=== PATIENT | male | born 1940 | race Caucasian/White ===

== ENCOUNTER → 2017-10-06 | Outpatient (CLI) | payer MEDICARE, OTHER ==
[~2017-10-06] MED LIST: ATOR10TA9 PO; C,E,1CAP PO; CALC1CAP8 PO; CHOL200024 PO; CYAN10005 PO; DOCO100C PO; LEVO200T PO; LOSA50TA6 PO; METF500T5 PO; NAPR220C2 PO; POLY17PO5 PO; PSYL575P16 PO; RANI150T4 PO; TURM500C4 PO; VIT500TA3 PO; [UNRECOGNIZED DRUG - OTHER] PO
[2017-10-06 14:34] LABS: ALANINE AMINOTRANSFERASE 35 U/L (12-78); ALBUMIN 3.5 g/dL (3.4-5.0); ANION GAP 6 mmol/L (5-15); CALCIUM 8.7 mg/dL (8.5-10.1); CHLORIDE 105 mmol/L (98-107); CREATININE 0.94 mg/dL (0.7-1.3)
[2017-10-06 14:36] LABS: ALKALINE PHOSPHATASE 67 U/L (45-117); BILIRUBIN,TOTAL 0.5 mg/dL (0.2-1.0); TOTAL PROTEIN 6.6 g/dL (6.4-8.2)
== END | disposition home or self-care (01) ==
LOC: STAR 13:11
PROVIDERS: ATTEND Surgery
DX: Z01.818 Encounter for other preprocedural examination (principal); K42.9 Umbilical hernia without obstruction or gangrene
CPT/HCPCS: 36415; 80053; 93005

== ENCOUNTER 2017-10-14 08:30 | Day surgery (SDC) | payer MEDICARE, OTHER ==
[~2017-10-14] VITALS: Ht 182.9 cm; Wt 97.1 kg
[2017-10-14] MEDS ORDERED: LACTATED RINGERS 1,000 ML IV SCH (08:51)
[2017-10-14 08:54] VITALS: BP 148/81
[2017-10-14] MEDS ORDERED: BUPIVACAINE/PF-EPI 0.5% 1:200K ONE (09:05)
[2017-10-14] MEDS ORDERED: ACETAMINOPHEN 500 MG TABLET PO ONE (09:30)
[2017-10-14] MEDS ORDERED: GABAPENTIN 300 MG CAPSULE PO ONE (09:30)
[2017-10-14] MEDS ORDERED: SCOPOLAMINE PATCH, 1.5MG PATCH.TD72 TD ONE (09:37)
[2017-10-14] MEDS ORDERED: FENTANYL PF 100 MCG/2ML ONE ×2 (09:38→11:08)
[2017-10-14] MEDS ORDERED: PROPOFOL 10 MG/ML, 20ML ONE (10:21)
[2017-10-14] MEDS ORDERED: ROCURONIUM 10MG/ML,5ML ONE (10:21)
[2017-10-14] MEDS ORDERED: GLYCOPYRROLATE 0.2MG/1ML, 5ML ONE (10:21)
[2017-10-14] MEDS ORDERED: DEXAMETHASONE 4 MG/ML, 1ML ONE (10:21)
[2017-10-14] MEDS ORDERED: ONDANSETRON 2MG/ML, 2ML ONE (10:21)
[2017-10-14] MEDS ORDERED: CEFAZOLIN 1,000 MG ONE (10:21)
[2017-10-14] MEDS ORDERED: SUCCINYLCHOLINE 20 MG/ML, 10ML ONE (10:21)
[2017-10-14] MEDS ORDERED: NEOSTIGMINE 1 MG/ML, 10ML ONE (10:21)
[2017-10-14] MEDS ORDERED: SUGAMMADEX 200 MG/2 ML IVPush ONE (10:31)
[2017-10-14] MEDS ORDERED: PROCHLORPERAZINE 5 MG/ML, 2ML IV PRN (11:00)
[2017-10-14] MEDS ORDERED: MEPERIDINE/PF 25MG/0.5ML IVPush PRN (11:00)
[2017-10-14] MEDS ORDERED: LABETALOL 5MG/ML, 20ML IV PRN (11:00)
[2017-10-14] MEDS ORDERED: PROMETHAZINE 12.5 MG SUPP PR PRN (11:00)
[2017-10-14] MEDS ORDERED: OXYcodone 5 MG/5 ML ORAL.SOL UDC PO PRN (11:00)
[2017-10-14] MEDS ORDERED: DIPHENHYDRAMINE 50 MG/ML, 1ML IVPush PRN (11:00)
[2017-10-14] MEDS ORDERED: FENTANYL PF 100 MCG/2ML IV PRN (11:00)
[2017-10-14] MEDS ORDERED: HYDROmorphone 1 MG/ML, 1ML IV PRN (11:00)
[2017-10-14] MEDS ORDERED: KETOROLAC 30 MG/1 ML IV PRN (11:00)
[2017-10-14] MEDS ORDERED: KETOROLAC 30 MG/1 ML ONE (11:07)
[2017-10-14] MEDS ORDERED: OXYcodone 5 MG/5 ML ORAL.SOL UDC ONE (11:08)
== END 2017-10-14 12:50 | disposition home or self-care (01) ==
LOC: OUT 08:30
PROVIDERS: ATTEND Surgery
DX: K42.0 Umbilical hernia with obstruction, without gangrene (principal); I48.91 Unspecified atrial fibrillation; I25.10 Atherosclerotic heart disease of native coronary artery without angina pectoris; I10 Essential (primary) hypertension; G47.33 Obstructive sleep apnea (adult) (pediatric); K21.9 Gastro-esophageal reflux disease without esophagitis; J44.9 Chronic obstructive pulmonary disease, unspecified; E78.5 Hyperlipidemia, unspecified; E03.9 Hypothyroidism, unspecified; Z88.1 Allergy status to other antibiotic agents; Z88.8 Allergy status to other drugs, medicaments and biological substances; Z85.850 Personal history of malignant neoplasm of thyroid; Z98.890 Other specified postprocedural states
CPT/HCPCS: 49587; 82962; C1781; J0330; J0690; J1100; J1885; J2405; J2704; J2710; J3010; J3490